=== PATIENT | male | born 1955 | race Caucasian/White ===

== ENCOUNTER 2021-09-25 07:06 | Day surgery (SDC) | payer MEDICARE ==
[2021-09-24 12:54] VITALS: BMI 30.7
[2021-09-25] MEDS ORDERED: Phenylephrine 2.5% Ophth Soln 5 ML BOT ONE (07:41)
[2021-09-25] MEDS ORDERED: Cyclopentolate 1% Opth Drop 2 ML BOT ONE (07:41)
[2021-09-25] MEDS ORDERED: EPINEPHrine 0.3 MG in Ophthalmic Irrigation Solution 500 ML IRR SCH (07:45)
[2021-09-25] MEDS ORDERED: Fentanyl 100 MCG/2 ML VIAL ONE (07:53)
[2021-09-25] MEDS ORDERED: Midazolam HCl 2 mg/2 ml Vial ONE (07:53)
[2021-09-25] MEDS ORDERED: Indocyanine Green 25 MG/10 ML VIAL ONE (08:46)
[2021-09-25] MEDS ORDERED: Bupivacaine PF 0.75% SDV 10 ML ONE (08:46)
[2021-09-25] MEDS ORDERED: Lidocaine 1% PF 5 ML VIAL ONE (08:46)
[2021-09-25] MEDS ORDERED: CEFAZOLIN 1 GM VIAL ONE (08:46)
[2021-09-25] MEDS ORDERED: Lidocaine 4% PF 5 ML AMP ONE (08:46)
[2021-09-25] MEDS ORDERED: Maxitrol 0.1% Opth Oint 3.5 GM TUBE ONE (08:46)
[2021-09-25] MEDS ORDERED: PROPOFOL 200 MG/20 ML VIAL ONE (08:46)
[2021-09-25] MEDS ORDERED: Triamcinolone 40 MG/ML VIAL ONE (08:46)
== END 2021-09-25 10:15 | disposition home or self-care (01) ==
LOC: SDC 07:06
PROVIDERS: ATTEND Ophthalmology Retina Specialist
PROC: 08T53ZZ Resection of Left Vitreous, Percutaneous Approach (ICD-10-PCS; principal; 2021-09-25)
PROC: 08QF3ZZ Repair Left Retina, Percutaneous Approach (ICD-10-PCS; 2021-09-25)
PROC: 08NF3ZZ Release Left Retina, Percutaneous Approach (ICD-10-PCS; 2021-09-25)
DX: E11.3592 Type 2 diabetes mellitus with proliferative diabetic retinopathy without macular edema, left eye (principal); H35.372 Puckering of macula, left eye; H43.12 Vitreous hemorrhage, left eye; Z79.4 Long term (current) use of insulin; Z79.899 Other long term (current) drug therapy
CPT/HCPCS: 36416; J0171; J0690; J2250; J2704; J3010; J3301; J3490